=== PATIENT | female | born 1990 | race Caucasian/White ===

== ENCOUNTER 2018-02-01 18:18 | Emergency (ER) | payer MEDICAID, OTHER ==
[~2018-02-01] VITALS: Ht 157.5 cm; Wt 62.2 kg
[~2018-02-01 18:18] MED LIST: ALBU6.7H INH; AZIT250T PO; ETON68IM3 SQ; NAPR-996 PO
[2018-02-01 18:31] VITALS: BP 140/90
[2018-02-01] MEDS ORDERED: HYDROcodone/acetaminophen 10/325mg tab PO STA (18:33)
[2018-02-01] MEDS ORDERED: ACET-3067 PO (20:19)
== END 2018-02-01 20:35 | disposition home or self-care (01) ==
LOC: ER 18:18
DX: S93.401A Sprain of unspecified ligament of right ankle, initial encounter (principal); J45.909 Unspecified asthma, uncomplicated; F12.90 Cannabis use, unspecified, uncomplicated; Z90.49 Acquired absence of other specified parts of digestive tract; Z98.890 Other specified postprocedural states; Z88.5 Allergy status to narcotic agent; Z88.8 Allergy status to other drugs, medicaments and biological substances; Z88.6 Allergy status to analgesic agent; Z79.2 Long term (current) use of antibiotics; Z79.899 Other long term (current) drug therapy; X37.1XXA Tornado, initial encounter; Y93.89 Activity, other specified; Y92.89 Other specified places as the place of occurrence of the external cause; Y99.8 Other external cause status
CPT/HCPCS: 73610; 99284

== ENCOUNTER 2018-02-02 12:27 | Emergency (ER) | payer OTHER ==
[~2018-02-02] VITALS: Ht 157.5 cm; Wt 62.4 kg
[~2018-02-02 12:27] MED LIST changes: +ACET-3067 PO
[2018-02-02 13:26] VITALS: BP 153/87
== END 2018-02-02 13:28 | disposition home or self-care (01) ==
LOC: ER 12:27
DX: S93.401A Sprain of unspecified ligament of right ankle, initial encounter (principal); J45.909 Unspecified asthma, uncomplicated; F12.90 Cannabis use, unspecified, uncomplicated; Z90.49 Acquired absence of other specified parts of digestive tract; Z98.890 Other specified postprocedural states; Z88.5 Allergy status to narcotic agent; Z88.6 Allergy status to analgesic agent; Z88.8 Allergy status to other drugs, medicaments and biological substances; Z79.2 Long term (current) use of antibiotics; Z79.899 Other long term (current) drug therapy; W10.8XXA Fall (on) (from) other stairs and steps, initial encounter; Y93.01 Activity, walking, marching and hiking; Y92.89 Other specified places as the place of occurrence of the external cause; Y99.8 Other external cause status
CPT/HCPCS: 99281; 99282

== ENCOUNTER 2020-10-06 19:10 | Inpatient (IN) | payer MEDICAID ==
[~2020-10-06] VITALS: Ht 157.5 cm; Wt 71.5 kg
[~2020-10-06 19:10] MED LIST changes: -ACET-3067 PO; -ALBU6.7H INH; +ALBU6.7H9 INH
[2020-10-06 19:38] LABS: COLOR,URINE YELLOW (Yellow); GLUCOSE, URINE NEGATIVE (Neg); KETONES,URINE NEGATIVE (Neg); LEUKOCYTE ESTERASE ,URINE TRACE (Neg); NITRITES, URINE NEGATIVE (Neg); OCCULT BLOOD,URINE LARGE (Neg); PROTEIN,URINE 100 mg/dl (Neg); UROBILINOGEN,URINE 0.2 E.U/dL (0.2-1.0)
[2020-10-06 19:39] LABS: URINE HCG NEGATIVE (NEG)
[2020-10-06 19:41] LABS: CLARITY,URINE SLIGHTLY CLOUDY (Clear); UA COLLECTION TYPE CLN CATCH MIDSTREAM
[2020-10-06 19:47] LABS: BACTERIA,URINE FEW /HPF (Neg); MUCUS STRANDS MODERATE /LPF (Neg); RBC,URINE 50-100 /HPF (0-2)
[2020-10-06 19:48] LABS: SQUAMOUS EPITHELIAL CELL,UR MODERATE /LPF (FEW)
[2020-10-06 20:19] LABS: BASOPHILS % (AUTO) 0.2 % (0-1); EOSINOPHILS % (AUTO) 0.4 % (0-6); HEMATOCRIT 38.8 % (35.0-45.0); HEMOGLOBIN 13.1 g/dl (12.0-16.0); LYMPHOCYTES # (AUTO) 2.7 X10'3 (1.1-4.8); LYMPHOCYTES % (AUTO) 20.3 % (21-51); MEAN CORPUSCULAR HEMOGLOBIN 30.2 PG (27.0-31.0); MEAN CORPUSCULAR HGB CONC 33.9 g/dL (33.0-36.5); MEAN CORPUSCULAR VOLUME 89.2 FL (78-98); MEAN PLATELET VOLUME 8.5 FL (7.4-10.4); MONOCYTES # (AUTO) 0.8 X10'3 (0-0.9); MONOCYTES % (AUTO) 5.7 % (2-12); NEUTROPHILS # (AUTO) 9.9 X10'3 (1.8-7.7); NEUTROPHILS % (AUTO) 73.4 % (42-75); PLATELET COUNT 280 X10'3 (140-440); RED BLOOD COUNT 4.35 X10'6 (4.20-5.60); RED CELL DISTRIBUTION WIDTH 13.1 % (11.5-14.5); WHITE BLOOD COUNT 13.5 X10'3 (4.5-11.0)
[2020-10-06 20:25] LABS: ALANINE AMINOTRANSFERASE 23 U/L (12-78); ALBUMIN 3.6 G/DL (3.4-5.0); ALBUMIN/GLOBULIN RATIO 1.2 (1.1-1.5); ALKALINE PHOSPHATASE 63 IU/L (46-116); ANION GAP 6 (8-16); ASPARTATE AMINO TRANSFERASE 14 U/L (10-37); BILIRUBIN,TOTAL 0.3 MG/DL (0.1-1.0); BLOOD UREA NITROGEN 15 MG/DL (7-18); BUN/CREATININE RATIO 16.7 (6.6-38.0); CALCIUM 8.5 MG/DL (8.5-10.1); CHLORIDE 105 MMOL/L (99-107); GLUCOSE 108 MG/DL (70-104); LIPASE 88 U/L (73-393); POTASSIUM 3.4 MMOL/L (3.5-5.1); SODIUM 140 MMOL/L (135-145); TOTAL CARBON DIOXIDE 29.2 MMOL/L (24-32); TOTAL PROTEIN 6.5 G/DL (6.4-8.2); eGFR 73 ML/MIN
[2020-10-06] MEDS ORDERED: ondansetron/PF 4mg/2ml inj IV ONE ×2 (20:45→21:05)
[2020-10-06] MEDS ORDERED: ketorolac trometh. 30mg/ml inj. IV ONE (21:05)
[2020-10-06] MEDS ORDERED: normal saline 1000ML IV soln IVB ONE (21:05)
[2020-10-06] MEDS ORDERED: CefTRIAXone 2gm/D5W 50ml BAG 50 ML IV ONE (21:40)
[2020-10-06] MEDS ORDERED: morphine 4 MG/ML inj SYRINge IV ONE (22:20)
[2020-10-06] MEDS ORDERED: NO HOME MEDS (23:56)
[2020-10-06] MEDS ORDERED: morphine 4 MG/ML inj SYRINge IV STA (23:58)
[2020-10-07] VITALS (15 sets, daily range): BP systolic 102–144; BP diastolic 63–83
[2020-10-07] MEDS ORDERED: morphine 2 MG/ML inj. syringe IV PRN ×2 (00:05→17:00)
[2020-10-07] MEDS: normal saline 1000ml 1,000 ML IV SCH ×4 (00:20→20:05)
[2020-10-07] MEDS: ondansetron/PF 4mg/2ml inj IV PRN ×4 (03:12→20:22)
[2020-10-07] MEDS ORDERED: famotidine/PF 10 mg/ml inj IV ONE ×2 (09:15→15:00)
[2020-10-07] MEDS ORDERED: proCHLORperazine 10 MG/2 ml inj IV PRN ×2 (09:25→17:00)
[2020-10-07] MEDS ORDERED: HYDROmorphone 1 mg/ml syringe IV PRN (09:25)
[2020-10-07] MEDS ORDERED: acetaminophen 1,000mg/100ml IV 100 ML IV PRN (17:00)
[2020-10-07] MEDS ORDERED: HYDROmorphone/PF 0.2 MG/ML SYRINGE IV PRN ×2 (17:00)
[2020-10-07] MEDS ORDERED: hydrALAZINE 20mg/ml inj. IV PRN (17:00)
[2020-10-07] MEDS ORDERED: ringers solution, lacted 1,000 ML IV SCH (17:00)
[2020-10-07] MEDS ORDERED: morphine 4 MG/ML inj SYRINge IV PRN (17:00)
[2020-10-07] MEDS ORDERED: labetalol 20mg/4ml (5mg/ml) syringe IV PRN (17:00)
[2020-10-07] MEDS ORDERED: ondansetron/PF 4mg/2ml inj IV PRN (17:00)
--- NOTE | 2020-10-07 17:41 | NUR ---
PRE OP CARE PROVIDED, CHLORHEXIDINE SCRUB NOT DONE PER MD. EARRINGS GIVEN TO SIGNIFICANT OTHER, BOO. HAND OFF GIVEN TO POST OP NURSE, SHELLIE.
[2020-10-07] MEDS ORDERED: midazolam 1 mg/ML 2ml injection ONE (18:16)
[2020-10-07] MEDS ORDERED: fentaNYL/PF 50MCG/1 ML 2ML syringe ONE (18:16)
[2020-10-07] MEDS ORDERED: propofol inj 20 ML IV ONE (18:35)
[2020-10-07] MEDS ORDERED: LIDOcaine 2% (20mg/ml) 5ml vial ONE (18:35)
[2020-10-07] MEDS ORDERED: dexamethasone sod phosphate 4mg/ml inj. ONE (18:35)
[2020-10-07] MEDS ORDERED: ondansetron/PF 4mg/2ml inj ONE (18:35)
[2020-10-07] MEDS ORDERED: ceFAZolin 1000mg inj ONE ×2 (18:39)
--- NOTE | 2020-10-07 18:47 | NUR ---
Problems reprioritized. Patient report given, questions answered & plan of care reviewed with OLYA. PT IS OFF THE UNIT IN SURGERY.
--- NOTE | 2020-10-07 18:56 | NUR ---
Reviewed Sierra CREWS's physical assessment and I agree.
--- NOTE | 2020-10-07 18:57 | NUR ---
Received from OR via SURGICAL BED, accompanied by Anesthesiologist WARD and report given by Anesthesiolgist. PATIENT WITH 2OG PIV IN RIGHT UE RUNNING NS AT 100, VSS. 10L MASK ON WITH 100% SATURATIONS. NO DRAINS PRESENT. SCDS DONNED UPON ARRIVAL. POSITIONED TO COMFORT. Addendum: 10/07/20 at 1926 by Andrea Tinoco RN, RN Amended: Links added.
--- NOTE | 2020-10-07 19:47 | NUR ---
ALL DC CRITERIA TO THE FLOOR HAS BEEN MET. VSS. DENIES PAIN. AMBULATED TO AND FROM BATHROOM. PATIENT ALERT, AWAKE AND HAS NO COMPLAINTS. [facility] SIG OTHER NOTIFIED OF TRANSFER AND WENT TO VISIT WITH HER. AD NOTIFIED THAT PATIENT HAS ARRIVED AND VS. CONNECTED AND STABLE. WILL ASSESS PATIENT. Addendum: 10/07/20 at 1951 by Andrea Tinoco RN, RN Amended: Links added.
--- NOTE | 2020-10-07 19:50 | NUR ---
PATIENT BACK TO ROOM 340A FROM RECOVERY ROOM AFTER URETERAL STENT WAS DONE BY DR. CAMPBELL. PLACED COMFORTABLE IN BED.
[2020-10-07] MEDS ORDERED: CefTRIAXone/D5W-Rocephin 1gm 50 ML IV SCH (20:00)
[2020-10-07] MEDS ORDERED: HYDROmorphone inj. 0.5 MG/0.5 ML DISP.SYRIN IV PRN (20:10)
[2020-10-07] MEDS: HYDROmorphone 1 mg/ml syringe IV PRN (20:29)
[2020-10-08] VITALS: BP 123/74
[2020-10-08] MEDS: normal saline 1000ml 1,000 ML IV SCH (01:07)
[2020-10-08] MEDS: HYDROmorphone 1 mg/ml syringe IV PRN ×3 (01:10→09:53)
[2020-10-08 04:00] VITALS: BP 134/73
--- NOTE | 2020-10-08 06:29 | NUR ---
Problems reprioritized. Patient report given, questions answered & plan of care reviewed with JUAN DIEGO CREWS.
[2020-10-08 07:05] LABS: BASOPHILS % (AUTO) 0.1 % (0-1); EOSINOPHILS % (AUTO) 0 % (0-6); HEMATOCRIT 38.3 % (35.0-45.0); HEMOGLOBIN 13.4 g/dl (12.0-16.0); LYMPHOCYTES # (AUTO) 0.6 X10'3 (1.1-4.8); LYMPHOCYTES % (AUTO) 5.5 % (21-51); MEAN CORPUSCULAR HEMOGLOBIN 31.3 PG (27.0-31.0); MEAN CORPUSCULAR VOLUME 89.5 FL (78-98); MEAN PLATELET VOLUME 8.7 FL (7.4-10.4); MONOCYTES # (AUTO) 0.2 X10'3 (0-0.9); MONOCYTES % (AUTO) 1.7 % (2-12); NEUTROPHILS # (AUTO) 10.1 X10'3 (1.8-7.7); NEUTROPHILS % (AUTO) 92.7 % (42-75); PLATELET COUNT 265 X10'3 (140-440); RED BLOOD COUNT 4.28 X10'6 (4.20-5.60); RED CELL DISTRIBUTION WIDTH 13.2 % (11.5-14.5); WHITE BLOOD COUNT 10.9 X10'3 (4.5-11.0)
[2020-10-08 07:20] VITALS: BP 126/75
[2020-10-08] MEDS: ondansetron/PF 4mg/2ml inj IV PRN (07:32)
[2020-10-08 07:40] LABS: ALANINE AMINOTRANSFERASE 21 U/L (12-78); ALBUMIN 3.3 G/DL (3.4-5.0); ALBUMIN/GLOBULIN RATIO 1.1 (1.1-1.5); ALKALINE PHOSPHATASE 61 IU/L (46-116); ANION GAP 10 (8-16); ASPARTATE AMINO TRANSFERASE 15 U/L (10-37); BILIRUBIN,TOTAL 0.4 MG/DL (0.1-1.0); BLOOD UREA NITROGEN 7 MG/DL (7-18); BUN/CREATININE RATIO 12.3 (6.6-38.0); CALCIUM 8.3 MG/DL (8.5-10.1); CHLORIDE 107 MMOL/L (99-107); CREATININE 0.57 MG/DL (0.40-0.90); GLUCOSE 113 MG/DL (70-104); SODIUM 140 MMOL/L (135-145); TOTAL PROTEIN 6.4 G/DL (6.4-8.2); eGFR > 90 ML/MIN
--- NOTE | 2020-10-08 09:24 | NUR ---
PAGER ID: [phone] MESSAGE: Nicole Dominguez 340A: c/o pain. dilaudid 1mg q4h is not helping. thanks! pramod [phone]
[2020-10-08 11:00] VITALS: BP 125/82
[2020-10-08] MEDS ORDERED: HYDR-3965 PO (11:52)
[2020-10-08] MEDS ORDERED: SENN1TAB82 PO (12:00)
[2020-10-08] MEDS ORDERED: ACET-1008 PO (12:00)
[2020-10-08] MEDS ORDERED: CIPR-259 PO (13:04)
--- NOTE | 2020-10-08 14:35 | NUR ---
patient stable and appropriate for discharge home. IV removed, all belongings taken from room. New medications called in/transmitted to preferred pharmacy. All discharge instructions and education given and reviewed with patient. All questions answered. patient is aware of need for follow up with dr. narvaez. office number and address given to patient.
[2020-10-08] MEDS ORDERED: lactobacillus rhamnosus 10,000 MMU CELLS/CAPSULE PO SCH (20:00)
== END 2020-10-08 14:30 | disposition home or self-care (01) | DRG 463 ==
LOC: ER 19:10 → ED HOLD 10-07 00:02 → SUR 3N 10-07 07:03 → PACU 10-07 17:46 → SUR 3N 10-07 19:45
PROVIDERS: ADMIT Internal Medicine; ATTEND Internal Medicine
PROC: 0T768DZ Dilation of Right Ureter with Intraluminal Device, Via Natural or Artificial Opening Endoscopic (ICD-10-PCS; principal; 2020-10-07 18:22)
DX: N13.6 Pyonephrosis (principal); J45.909 Unspecified asthma, uncomplicated; Z20.822 Contact with and (suspected) exposure to COVID-19; Z87.442 Personal history of urinary calculi; Z90.49 Acquired absence of other specified parts of digestive tract; Z88.8 Allergy status to other drugs, medicaments and biological substances
CPT/HCPCS: 36415; 74176; 76000; 76830; 76856; 80053; 81001; 81025; 82948; 83690; 85025; 87081; 87088; 87635; 93976; 99285; A4618; C1758; C1769; C2617; G0378; J0690; J0696; J0780; J1100; J1170; J1885; J2001; J2250; J2270; J2405; J2704; J3010; J3490; J7030